=== PATIENT | female | born 1995 | race African-American/Black ===

== ENCOUNTER 2016-12-25 10:39 | Emergency (ER) | payer SELFPAY ==
[2016-12-25 10:42] VITALS: BP 121/73; PULSE 58; TEMP 98.2; BMI 20.1
[2016-12-25] MEDS ORDERED: IBUPROFEN 600 MG TABLET (FP) PO ONE ×2 (11:25→11:29)
--- NOTE | 2016-12-25 11:25 | PDOC ---
History of Present Illness - General Chief Complaint: Pain Stated Complaint: RIGHT FOOT SWOLLEN/ NUMB TOES Time Seen by Provider: 12/25/16 10:55 History Source: Patient Exam Limitations: No Limitations - History of Present Illness Initial Comments: 12/25/16 11:36 Chief complaint: Foot pain pt is a healthy 21-year-old female ate she has right foot pain for 2 days, no mechanism of injury, otherwise feels well, and no medical problems. Patient states it's painful to walk on. no Recent pedicures or specific activities GENERAL/CONSTITUTIONAL: No fever, weakness. dizziness HEAD, EYES, EARS, NOSE AND THROAT: No change in vision. No ear pain or discharge. No sore throat. CARDIOVASCULAR: No chest pain RESPIRATORY: No shortness of breath or cough GASTROINTESTINAL: No pain, nausea, vomiting, diarrhea or constipation GENITOURINARY: No dysuria MUSCULOSKELETAL: No neck or back pain, + right foot SKIN: No rash NEUROLOGIC: No headache, vertigo, loss of consciousness, or loss of sensation. GENERAL: The patient is awake, alert, and fully oriented, in no acute distress. HEAD: Normal with no signs of trauma. EYES: Pupils equal, round and reactive to light, sclera anicteric, conjunctiva clear. ENT: pharynx: no erythema, no exudate, uvula midline NECK: supple CHEST: clear, nontender, rr ABD: soft, nontender EXTREMITIES: Right foot with no gross swelling, no specific tenderness, no signs of infection or wounds. Painful range of motion, neurovascular intact, exam of the rest of the extremity is negative, other extremities, normal range of motion, no edema. NEUROLOGICAL: Normal speech, normal gait. SKIN: Warm, Dry Severity: mild Past History - Past Medical History Allergies/Adverse Reactions: Allergies Allergy/AdvReac Type Severity Reaction Status Date / Time No Known Allergies Allergy Verified 12/25/16 10:42 Home Medications: Ambulatory Orders NK [No Known Home Medication] 12/25/16 Other medical history: NONE - Psycho/Social/Smoking Cessation Hx Anxiety: No Suicidal Ideation: No Smoking History: Never smoked Have you smoked in the past 12 months: No Hx Alcohol Use: Yes (SOCIAL) Drug/Substance Use Hx: No Substance Use Type: None *Physical Exam - Vital Signs Last Vital Signs Temp Pulse Resp BP Pulse Ox 98.2 F 58 L 20 121/73 100 12/25/16 10:39 12/25/16 10:39 12/25/16 10:39 12/25/16 10:39 12/25/16 10:39 Medical Decision Making - Medical Decision Making 12/25/16 12:04 X-ray negative, no indication for further workup place patient on crutches and give her name for orthopedic follow-up if this does not resolve over the next couple of days with nonweightbearing *DC/Admit/Observation/Transfer Diagnosis at time of Disposition: Foot pain, right - Discharge Dispostion Disposition: HOME Condition at time of disposition: Stable Admit: No - Referrals Referrals: Rufus Donald MD [Staff Physician] - - Patient Instructions Additional Instructions: Elevate, use crutches Motrin 600 mg every 6 hours for pain. Call the orthopedist tomorrow
== END 2016-12-25 12:10 | disposition home or self-care (01) ==
LOC: JERFT 10:39
DX: M79.671 Pain in right foot (principal)
CPT/HCPCS: 73630-TC-RT; 99281-25

== ENCOUNTER 2017-06-26 11:15 | Emergency (ER) | payer OTHER ==
[2017-06-26 11:41] VITALS: BP 120/69; PULSE 74; TEMP 98.2; BMI 20.1
[2017-06-26] MEDS ORDERED: DEXTROSE 5%-0.45% SALINE 1,000 ML IV SCH (15:00)
[2017-06-26] MEDS ORDERED: METOCLOPRAMIDE HCL INJECTION 10 MG/2 ML VIAL IVPB ONE (15:03)
--- NOTE | 2017-06-26 15:07 | PDOC ---
History of Present Illness - General Chief Complaint: Lightheaded Stated Complaint: LIGHTHEADED (10 WKS ) Time Seen by Provider: 06/26/17 14:48 History Source: Patient - History of Present Illness Timing/Duration: other Associated Symptoms: reports: nausea/vomiting. denies: chest pain, fever/chills , headaches, shortness of breath, syncope Past History - Past Medical History Allergies/Adverse Reactions: Allergies Allergy/AdvReac Type Severity Reaction Status Date / Time No Known Allergies Allergy Verified 06/26/17 11:38 Home Medications: Ambulatory Orders Metoclopramide HCl [Reglan] 10 mg GT Q8H PRN #20 tablet 06/26/17 COPD: No - Suicide/Smoking/Psychosocial Hx Smoking History: Never smoked Have you smoked in the past 12 months: No Information on smoking cessation initiated: No Hx Alcohol Use: Yes (SOCIAL) Drug/Substance Use Hx: No Substance Use Type: None Review of Systems - Review of Systems Constitutional: No: Chills, Fever Respiratory: No: Shortness of Breath Cardiac (ROS): Yes: Lightheadedness. No: Chest Pain, Palpitations ABD/GI: Yes: Nausea, Vomiting. No: Abdominal cramping : No: Dysuria *Physical Exam - Vital Signs Last Vital Signs Temp Pulse Resp BP Pulse Ox 98.2 F 74 18 120/69 100 06/26/17 11:39 06/26/17 11:39 06/26/17 11:39 06/26/17 11:39 06/26/17 11:39 - Physical Exam General Appearance: Yes: Appropriately Dressed. No: Apparent Distress HEENT: positive: Normal Voice Neck: positive: Supple Respiratory/Chest: negative: Respiratory Distress Gastrointestinal/Abdominal: positive: Soft. negative: Tender Integumentary: positive: Dry, Warm Neurologic: positive: Fully Oriented, Alert, Normal Mood/Affect ED Treatment Course - LABORATORY CBC & Chemistry Diagram: 06/26/17 15:20 06/26/17 15:20 Medical Decision Making - Medical Decision Making 06/26/17 15:04 22 yo F, , ~10 weeks by dates, has had IUP demonstrated on US in OB 's office, on vitamins, sent in by her OB for IV hydration for n/v per pt. As per patient, has been having intermittent nausea, vomiting since she found out she was . Last time she vomited was while in the waiting room. Went to see her OB today and complained that she was dizzy at work and felt like she was going to pass out, but denies any syncope. No chest pain or shortness of breath. Denies abdominal pain, vaginal bleeding or dysuria. States she is not on any anti-emetics at home See exam Dizziness in setting of hyperemesis Stable and well bob in ED -IVF -zofran -labs -reassess 06/26/17 16:08 Labs unremarkable. Patient significantly improved with meds and requesting discharge home. Will dc with instructions to rest, maintain adequate hydration and given prescription for Reglan to take as needed. Patient to continue following up with her OB *DC/Admit/Observation/Transfer Diagnosis at time of Disposition: Hyperemesis Qualifiers: Vomiting type: unspecified Nausea presence: with nausea Qualified Code(s): R11.2 - Nausea with vomiting, unspecified - Discharge Dispostion Disposition: HOME Condition at time of disposition: Improved - Prescriptions Prescriptions: Metoclopramide HCl [Reglan] 10 mg GT Q8H PRN #20 tablet PRN Reason: Nausea And/Or Vomiting - Referrals Referrals: Yonatan James [Primary Care Provider] - - Patient Instructions Printed Discharge Instructions: DI for Hyperemesis Gravidarum Additional Instructions: Rest, maintain adequate hydration and take reglan as needed for nausea/vomiting. Please continue to follow-up with your OB - Post Discharge Activity Forms/Work/School Notes: Back to Work
[2017-06-26] MEDS ORDERED: METOCLOPRAMIDE HCL INJECTION 10 MG/2 ML VIAL ONE (15:22)
[2017-06-26 15:42] LABS: BASOPHIL 0.2 % (0-2.0); EOSINOPHIL 0.7 % (0-4.5); MCH 29.6 pg (25.7-33.7); MCHC 33.6 g/dl (32.0-36.0); MEAN CELL VOLUME 88.2 fl (80-96); NEUTROPHILS 62.5 % (42.8-82.8); PLATELET COUNT 293 K/MM3 (134-434); RDW 12.8 % (11.6-15.6)
[2017-06-26 15:54] LABS: URINE APPEARANCE CLEAR; URINE BILIRUBIN NEGATIVE (NEGATIVE); URINE BLOOD NEGATIVE (NEGATIVE); URINE COLOR YELLOW; URINE GLUCOSE (UA) 1+ (NEGATIVE); URINE KETONE NEGATIVE (NEGATIVE); URINE NITRITE NEGATIVE (NEGATIVE); URINE PROTEIN NEGATIVE (NEGATIVE)
[2017-06-26 15:55] LABS: ALBUMIN 3.8 g/dl (3.4-5.0); ANION GAP 7 (8-16); BILIRUBIN,TOTAL 0.5 mg/dL (0.2-1.0); CALCIUM 9.3 mg/dL (8.5-10.1); CO2 26 mmol/L (21-32); CREATININE 0.5 mg/dL (0.55-1.02); GLUCOSE,RANDOM 85 mg/dL (74-106); SGOT/AST 8 U/L (15-37); SGPT/ALT 13 U/L (12-78); TOT PROT 7.2 g/dl (6.4-8.2)
[2017-06-26 15:56] LABS: ALK PHOS 40 U/L (45-117)
[2017-06-26 19:02] LABS: URINE LEUK ESTERASE Negative (NEGATIVE)
== END 2017-06-26 16:18 | disposition home or self-care (01) ==
LOC: JER 11:15
PROC: 3E033GC Introduction of Other Therapeutic Substance into Peripheral Vein, Percutaneous Approach (ICD-10-PCS; principal; 2017-06-26)
DX: O26.891 Other specified pregnancy related conditions, first trimester (principal); O21.0 Mild hyperemesis gravidarum; Z3A.10 10 weeks gestation of pregnancy
CPT/HCPCS: 36415; 80053; 81003; 85025; 99282-25

== ENCOUNTER 2018-01-20 17:40 | Inpatient (IN) | payer OTHER ==
[2018-01-20 18:12] VITALS: BMI 25.8
[2018-01-20] MEDS ORDERED: TUBERCULIN PPD 5 TU/0.1ML SYRINGE (IN PATIENT USE ONLY) ID ONE (18:15)
[2018-01-20 18:56] LABS: BASO % 0.4 % (0-2.0); EOS % 0.9 % (0-4.5); HEMATOCRIT 35.3 % (32.4-45.2); HEMOGLOBIN 11.9 GM/dL (10.7-15.3); LYMPH % 23.6 % (8-40); MCH 30.3 pg (25.7-33.7); MCHC 33.7 g/dl (32.0-36.0); MEAN CELL VOLUME 89.9 fl (80-96); MEAN PLT VOLUME 9.7 fl (7.5-11.1); MONO % 9.1 % (3.8-10.2); PLATELET COUNT 176 K/MM3 (134-434); RBC 3.93 M/mm3 (3.60-5.2); RDW 14.2 % (11.6-15.6); WHITE BLOOD COUNT 6.7 K/mm3 (4.0-10.0)
[2018-01-20 19:31] LABS: INR 0.93 (0.82-1.09); PROTHROMBIN TIME (PATIENT) 10.5 SEC (9.7-13.0)
[2018-01-20 19:34] LABS: ACTIVATED PTT 27.2 SECONDS (25.2-36.5)
[2018-01-20 19:58] LABS: GLUCOSE,RANDOM 81 mg/dL (74-106)
[2018-01-20 19:59] LABS: BLOOD UREA NITROGEN 4 mg/dL (7-18); CALCIUM 8.2 mg/dL (8.5-10.1); CO2 22 mmol/L (21-32); CREATININE 0.7 mg/dL (0.55-1.02)
[2018-01-20 20:00] LABS: ANION GAP 10 (8-16); CHLORIDE 110 mmol/L (98-107); POTASSIUM 3.9 mmol/L (3.5-5.1); SODIUM 142 mmol/L (136-145)
[2018-01-20] MEDS: DEXTROSE 5%-LACTATED RINGERS 1,000 ML IV SCH (20:50)
[2018-01-20] MEDS ORDERED: DINOPROSTONE 10 MG VAGINAL SUPPOSITORY VG ONE (22:26)
[2018-01-20 23:12] LABS: URINE APPEARANCE CLEAR; URINE BILIRUBIN NEGATIVE (<2.0 mg/dL); URINE COLOR STRAW; URINE GLUCOSE (UA) NEGATIVE (NEGATIVE); URINE KETONE NEGATIVE (NEGATIVE); URINE LEUK ESTERASE NEGATIVE (NEGATIVE); URINE NITRITE NEGATIVE (NEGATIVE); URINE PROTEIN NEGATIVE (NEGATIVE); URINE UROBILINOGEN NEGATIVE mg/dL (0.2-1.0)
[2018-01-20 23:13] LABS: RETICULOCYTES 2.11 % (0.5-1.5)
[2018-01-20 23:32] LABS: URIC ACID 4.5 mg/dL (2.6-7.2)
[2018-01-21] MEDS: DEXTROSE 5%-LACTATED RINGERS 1,000 ML IV SCH ×2 (01:23→21:31)
--- NOTE | 2018-01-21 01:30 | HP ---
Past Medical History - Admission Chief Complaint: iup at 39 weeks with h/o induced hypertension. is admitted for cervidil inductin of labor History of Present Illness: h/o hypertension in diet controlled . current blood pressure is reading 119/75 patient is asymptomatic, she also has a h/o sickle cell traits fob has not been tested History Source: Patient Limitations to Obtaining History: No Limitations - Past Medical History [employer]: No: Alzheimer's, CVA, Dementia, Migraine, Multiple Sclerosis, Peripheral Neuropathy, Parkinson's, Seizure, Syncope, TIA, Vertigo, Other Cardiovascular: No: AFIB, Aneurysm, Aortic Insufficiency, Aortic Stenosis, CAD, CHF, Deep Vein Thrombosis, HTN, Hyperlipdemia, [place], Mitral Insufficiency, Mitral Stenosis, Murmur, Pulmonary Hypertension, Other Pulmonary: No: Asthma, Bronchitis, Cancer, COPD, O2 Dependent, Pneumonia, Previously Intubated, Pulmonary Embolus, Pulmonary Fibrosis, Sleep Apnea, Other Gastrointestinal: No: Ascites, Cancer, Constipation, Crohn's Disease, Diverticulitis, Diverticulosis, Esophageal Varices, Gastritis, GERD, GI Bleed, Hemorrhoids, Hiatal Hernia, Inflamatory Bowel Disease, Irritable Bowel Disease, Pancreatitis, Peptic Ulcer Disease, Ulcerative Colitis, Other Hepatobiliary: No: Cirrhosis, Cholelithiasis, Cholecystitis, Choledocholithiasis , Hepatitis A, Hepatitis B, Hepatitis C, Other Renal/: No: Renal Failure, Renal Inusuff, BPH, Cancer, Hematuria, Hemodialysis , Neurogenic Bladder, Renal Calculi, UTI, Other Reproductive: No: Ectopic , Endometriosis, Fibroids, PID, Polycystic Ovary Syndrome, Postmenopausal, Other ...: 2 ...Para: 0 ...Term: 0 ...: 0 ...Spon : 0 ...Induced : 1 ...Multiple Gestation: 0 ...LMP: 04/15/17 ... Weeks Gestation by Dates: 40 ...EDC by Dates: 01/20/18 ...EDC by Sono: 01/20/18 Heme/Onc: Yes: Sickle Cell Trait Infectious Disease: No: AIDS, C-Diff, Herpes Zoster, HIV, MRSA, STD's, Tuberculosis, VREF, Other Psych: No: Addictions, Anxiety, Bipolar, Depression, Panic, Psychosis, Schizophrenia, Other Musculoskeletal: No: Bursitis, Chronic low back pain, Hemiparesis, Hemiplegia, Osteoarthritis, Paraplegia, Other Rheumatology: No: Fibromyalgia, Gout, Lupus, Rheumatoid Arthritis, Sarcoidosis, Vasculitis, Other ENT: No: Allergic Rhinitis, Sinusitis, Other Endocrine: No: Rusk's Disease, Chrissie's Disease, Diabetes Insipidus, Diabetes Mellitus, Hyperparathyroidism, Hyperthyroidism, Hypothyroidism, Osteopenia, SIADH, Other Dermatology: No: Basal Cell, Cellulitis, Eczema, Melanoma, Psoriasis, Squamous Cell, Other - Past Surgical History Past Surgical History: Yes: Tonsillectomy Hx Myomectomy: No Hx Transabdominal Cerclage: No - Smoking History Smoking history: Never smoked Have you smoked in the past 12 months: No - Alcohol/Substance Use Hx Alcohol Use: No Home Medications - Allergies Allergies/Adverse Reactions: Allergies Allergy/AdvReac Type Severity Reaction Status Date / Time No Known Allergies Allergy Verified 01/19/18 10:30 - Home Medications Home Medications: Ambulatory Orders Ferrous Sulfate 325 mg PO DAILY MDD 1 01/01/18 Pnv No.95/Ferrous Fum/Folic AC [ Vitamin Tablet] 1 each PO DAILY Family Disease History - Family Disease History Family History: Unremarkable Review of Systems - Review of Systems Constitutional: denies: No Symptoms, Chills, Diaphoresis, Fever, Lethargy, Loss of Appetite, Malaise, Night Sweats, Unintentional Wgt. Loss, Weakness, Other Eyes: denies: No Symptoms, Blind Spots, Blurred Vision, Double Vision, Eye Pain , Floaters, Photophobia, Recent Change in Vision, Other HENT: denies: No Symptoms, Difficult Swallowing, Ear Discharge, Ear Pain, Epistaxis, Gingival Bleeding, Hearing Loss, Mouth Swelling, Nasal Congestion, Ocular Prosthesis, Throat Pain, Toothache, Ringing in Ears, Other Neck: denies: No Symptoms, Decreased ROM, Lumps, Pain on Movement, Stiffness, Swollen Glands, Tenderness, Other Cardiovascular: denies: No Symptoms, Chest Pain, Edema, Palpitations, Shortness of Breath, Other Respiratory: denies: No Symptoms, Cough, Exercise Intolerance, Hemoptysis, Orthopnea, PND, Snoring, SOB, SOB on Exertion, Wheezing, Other Genitourinary: denies: No Symptoms, Burning, Discharge, Dysuria, Flank Pain, Frequency, Hematuria, Incontinence, Lesions, Menses, Pain, Testicular Mass, Testicular Pain, Testicular Swelling, Urgency, Vaginal Bleeding, Other Breasts: denies: No Symptoms Reported, See HPI, Breast Implants, Discharge from Nipple, Lumps, Pain, Skin Changes, Other Musculoskeletal: denies: No Symptoms, Back Pain, Crepitus, Decreased ROM, Extremity Pain, Joint Pain, Joint Swelling, Muscle Pain, Muscle Cramps, Muscle Weakness, Other Integumentary: denies: No Symptoms, Blister, Bruising, Change in Color, Eczema, Erythema, Incision, Lesions, Lump, Pallor, Pruritis, Rash, Wound, Other Neurological: denies: No Symptoms, Change in LOC, Change in Speech, Confusion, Dizziness, Headache, Incoordination, Numbness, Parasthesia, Pre-Existing Deficit , Seizure, Syncope, Tremors, Unsteady Gait, Weakness, Other Endocrine: denies: No Symptoms, Excessive Sweating, Flushing, Increased Hunger, Increased Thirst, Intolerance to Cold, Intolerance to Heat, Unexplained Weight Gain, Unexplained Weight Loss, Other Hematology/Lymphatic: denies: No Symptoms, Easily Bruised, Excessive Bleeding, Swollen Glands, Other Psychiatric: denies: No Symptoms, Altered Sleep Pattern, Anxiety, Depression, Hallucinations, Panic, Paranoia, Suicidal, Other Physical Exam - Maternity Vital Signs: Vital Signs Temperature 98.0 F 01/21/18 00:00 Pulse Rate 73 01/21/18 00:00 Respiratory Rate 20 01/21/18 00:00 Blood Pressure 133/82 01/21/18 00:00 O2 Sat by Pulse Oximetry (%) Constitutional: Yes: Well Nourished, No Distress, Calm Eyes: Yes: WNL, Conjunctiva Clear HENT: Yes: WNL, Atraumatic, Normocephalic Neck: Yes: WNL, Supple Cardiovascular: Yes: WNL, Regular Rate and Rhythm Lungs: Clear to auscultation Breast(s): Yes: WNL - Abdominal Exam/OB Number of Fetuses: Single Presentation: Vertex Contractions: Yes Regularity: Regular Intensity: Mild/Mod Monitor Mode: External Heart Rate (range): 150bpm Heart Rate Location: [facility] Category: I Accelerations: Uniform Decelerations: None - Vaginal Exam/OB Vaginal Bleediing: No Speculum Exam: No Dilatation (cm): ft Effacement (%): 50% Amniotic Membrane Status: Intact Presentation: Vertex/Position Station: -3 - Physical Exam Musculoskeletal: Yes: WNL Extremities: Yes: WNL Edema: No Integumentary: Yes: WNL Deep Tendon Reflex Grade: Normal +2 ...Motor Strength: WNL Psychiatric: Yes: WNL, Alert, Oriented - Labs Lab Results: CBC, BMP 01/20/18 22:50 01/20/18 18:16 Assessment/Plan iup at 39 weeks h/o induced hypertension current blood pressure is within normal limits plan begin induction with cevidil continue pain management as needed by the patient continue close monitoring of the blood pressure.
--- NOTE | 2018-01-21 10:37 | PN ---
Ante-Partal Exam - Subjective Subjective: Pt feeling crampy, no other complaints. Vital Signs: Vital Signs Temperature 98.6 F 01/21/18 08:00 Pulse Rate 80 01/21/18 09:00 Respiratory Rate 20 01/21/18 09:00 Blood Pressure 111/64 01/21/18 09:00 O2 Sat by Pulse Oximetry (%) Bleeding: No Headache: No Visual changes: No Right upper quadrant pain: No Pain (scale 1-10): 1 - Contractions Contractions: Yes Regularity: Regular Intensity: Mild - Exam during Labor Heart Rate: 150 Variability: Moderate Category: I Monitor Accelerations: Present Monitor Decelerations: None Exam: Vaginal Dilatation (cm): 0.0 Effacement (%): 0 Amniotic Membrane Status: Intact Presentation: Vertex Station: -2 - Assessment/Plan Assessment/Plan: Pt with no cervical change. Cervidil removed and second one placed at this time. Re evaluate this evening at 10:15 pm.
[2018-01-21] MEDS ORDERED: ELECTROLYTE-148 SOLN 1,000 ML IV SCH (11:30)
[2018-01-21] MEDS ORDERED: PROMETHAZINE HCL 25 MG/1 ML VIAL IVPB ONE (11:30)
[2018-01-21] MEDS ORDERED: BUTORPHANOL TARTRATE 1 MG/ML VIAL IVPB ONE (11:30)
[2018-01-21] MEDS ORDERED: PROMETHAZINE HCL 25 MG/1 ML VIAL ONE (15:43)
[2018-01-21] MEDS ORDERED: BUTORPHANOL TARTRATE 1 MG/ML VIAL ONE ×2 (15:43)
[2018-01-21] MEDS ORDERED: OXYTOCIN 30 UNITS in 0.9% NS 30 UNIT/500 ML INFUS.BAG IVPB SCH (19:00)
--- NOTE | 2018-01-21 19:10 | PN ---
Ante-Partal Exam - Subjective Subjective: Pt sleeping s/p stadol/phenergan. SROM this afternoon, cervidil fell out. Contractions have now spaced. Vital Signs: Vital Signs Temperature 98.3 F 01/21/18 18:00 Pulse Rate 80 01/21/18 18:00 Respiratory Rate 20 01/21/18 18:00 Blood Pressure 132/76 01/21/18 18:00 O2 Sat by Pulse Oximetry (%) Bleeding: Yes - Contractions Contractions: Yes Regularity: Irregular Intensity: Mild Monitor Mode: External - Exam during Labor Heart Rate: 155 Variability: Moderate Category: I Monitor Accelerations: Absent Monitor Decelerations: None Exam: Vaginal Dilatation (cm): 1 Effacement (%): 70 Amniotic Membrane Status: Ruptured Amniotic Fluid: Clear Presentation: Vertex Station: -2 - Assessment/Plan Assessment/Plan: Pt with IOL for gestational HTN, now with SROM, continue induction with pitocin. analgesia prn GBS negative
[2018-01-21] MEDS ORDERED: OXYTOCIN 30 UNITS in 0.9% NS 30 UNIT/500 ML INFUS.BAG IVPB ONE (19:15)
[2018-01-21] MEDS ORDERED: BUTORPHANOL TARTRATE 1 MG/ML VIAL IVPB PRN (20:24)
[2018-01-21] MEDS ORDERED: PROMETHAZINE HCL 25 MG/1 ML VIAL IVPB PRN (21:54)
[2018-01-21] MEDS ORDERED: ACETAMINOPHEN 325 MG TABLET (FP) ONE (22:39)
[2018-01-21] MEDS ORDERED: ACETAMINOPHEN 325 MG TABLET (FP) PO ONE (22:45)
[2018-01-22] MEDS ORDERED: PROMETHAZINE HCL 25 MG/1 ML VIAL ONE (00:20)
[2018-01-22] MEDS ORDERED: BUTORPHANOL TARTRATE 1 MG/ML VIAL ONE ×2 (00:20)
[2018-01-22] MEDS: DEXTROSE 5%-LACTATED RINGERS 1,000 ML IV SCH (00:30)
[2018-01-22] MEDS ORDERED: AMPICILLIN SODIUM 2 GM VIAL ONE (06:05)
[2018-01-22] MEDS ORDERED: AMPICILLIN - 2 GM in SODIUM CHLORIDE 100 ML IVPB ONE (06:45)
[2018-01-22] MEDS ORDERED: ELECTROLYTE-148 SOLN 500 ML IV ONE (10:00)
[2018-01-22] MEDS ORDERED: CITRIC ACID/SODIUM CITRATE 30 ML UNIT-DOSE CUP PO ONE (10:00)
[2018-01-22] MEDS ORDERED: morphine SULFATE/Preservative Free 0.5 MG/ML (1cc Syringe) ONE (10:11)
[2018-01-22] MEDS ORDERED: ceFAZolin SODIUM 1 GM VIAL ONE (10:12)
[2018-01-22] MEDS ORDERED: PHENYLEPHRINE HCL 10 MG/1 ML SINGLE DOSE VIAL ONE (10:13)
--- NOTE | 2018-01-22 10:13 | PN ---
Ante-Partal Exam - Subjective Subjective: Pt had pitocin overnight, however was discontinued due to variable decelerations. Now FHR tachycardic. Vital Signs: Vital Signs Temperature 98.6 F 01/22/18 08:00 Pulse Rate 84 01/22/18 09:00 Respiratory Rate 18 01/22/18 09:00 Blood Pressure 132/81 01/22/18 09:00 O2 Sat by Pulse Oximetry (%) Bleeding: No Headache: No Visual changes: No Right upper quadrant pain: No - Contractions Contractions: Yes Monitor Mode: External - Exam during Labor Heart Rate: 165 Variability: Moderate Category: II Monitor Accelerations: Present Monitor Decelerations: Variable (non recurrent) Exam: Vaginal Dilatation (cm): 3 Presentation: Vertex Remarks: exam per nursing staff - Assessment/Plan Assessment/Plan: IOL for gestational HTN no progress and intolerance to pitocin plan for delivery R/B/A discussed in detail, questions answered, consents signed
[2018-01-22] MEDS ORDERED: METHYLERGONOVINE MALEATE 0.2 MG/1 ML AMP IM PRN (10:14)
[2018-01-22] MEDS ORDERED: IBUPROFEN 600 MG TABLET (FP) PO PRN (10:14)
[2018-01-22] MEDS ORDERED: oxyCODONE HCL 5 MG TABLET PO PRN (10:14)
[2018-01-22] MEDS ORDERED: IBUPROFEN 800 MG/8 ML IJ IVPB PRN (10:14)
[2018-01-22] MEDS ORDERED: OXYTOCIN 20 UNITS in 0.9% NS 20 UNIT/1,000 ML INFUS.BAG IV SCH (10:15)
[2018-01-22] MEDS ORDERED: BUPIVACAINE 0.75% IN DEXTROSE/PF 2ML AMPULE NR ONE (10:17)
[2018-01-22] MEDS ORDERED: ELECTROLYTE-148 SOLN 1,000 ML IV SCH (10:30)
[2018-01-22] MEDS ORDERED: OXYTOCIN 10 UNITS/ML VIAL ONE ×2 (10:33→10:57)
--- NOTE | 2018-01-22 11:10 | OP ---
Operative Note - Note: Operative Date: 01/22/18 Pre-Operative Diagnosis: SIUP at 40 weeks, failed induction of labor for gestational HTN, intolerance to pitocin Operation: primary low transverse delivery Findings: normal b/l tubes and ovaries Surgeon: Alexandrea Kumar [employer] Controller Center: Andrew Castanon Anesthesiologist/PUTTY MIXER: Chato Veliz Anesthesia: Spinal Estimated Blood Loss (mls): 600 Operative Report Dictated: Yes
[2018-01-22] MEDS ORDERED: ONDANSETRON 4 MG/2 ML VIAL IVPUSH PRN (11:20)
[2018-01-22 11:46] LABS: ARTERIAL BLD GAS O2 SATURATION 8.5 % (90-98.9); ARTERIAL BLOOD GAS BASE EXCESS -2.8 meq/l (-2-2); ARTERIAL BLOOD GAS PCO2 64.9 mmHg (35-45); ARTERIAL BLOOD GAS pH 7.23 (7.35-7.45)
[2018-01-22 11:52] LABS: VENOUS PH 7.34 (7.32-7.42); VENOUS PO2 20.5 mmHg (28-48)
[2018-01-22] MEDS ORDERED: OXYTOCIN 20 UNITS in 0.9% NS 20 UNIT/1,000 ML INFUS.BAG IV ONE (12:20)
[2018-01-22] MEDS: PRENATAL VITAMINS W/ FOLIC ACID TABLET (FP) PO SCH ×2 (16:05→16:33)
[2018-01-22] MEDS: FERROUS SO4 325 MG TABLET (FP) PO SCH ×2 (16:05→16:32)
--- NOTE | 2018-01-22 19:12 | OP ---
DATE OF OPERATION: 01/22/2018 PREOPERATIVE DIAGNOSIS: Single intrauterine at 40 weeks, gestational hypertension, induction of labor secondary Pitocin. PROCEDURE: Primary low transverse delivery. SURGEON: Alexandrea Kumar M.D. GENETICS NURSE: Zelda Arevalo ANESTHESIA: Spinal. ANESTHESIOLOGIST: Chato Veliz M.D. ESTIMATED BLOOD LOSS: 600 mL. COMPLICATIONS: None. SPECIMENS REMOVED: The placenta. FINDINGS: Normal bilateral tubes and ovaries. COUNTS: Sponge, needle, and instrument count correct. DISPOSITION: Stable to PACU. BRIEF HISTORY AND PROCEDURE: Patient is a 22-year-old G2, P0 female who had was admitted to labor and delivery on January 20, 2018, for induction of labor secondary to gestational hypertension. Patient received Cervidil induction overnight Monday and throughout the day on Monday and had made cervical change to 1 to 2 cm, had ruptured her membranes spontaneously. The patient was started on Pitocin overnight January 21, 2018, and with the Pitocin the heart rate began having variable decelerations. Secondary to this, the Pitocin was turned off and on throughout the night, and in the morning on January 22, 2018, the heart rate started to become tachycardic. At this point, the patient was given her options. She elected to undergo a primary section delivery. The procedure was discussed in detail, risks, benefits, and alternatives were discussed. Risks including but not limited to bleeding, infection, and damage to surrounding tissue were discussed, the questions from the patient and family were answered in detail, and consents were signed. The patient was then taken back to the operating room where she was given spinal anesthesia by Dr. Veliz without difficulty. The patient was placed in the dorsal supine position, prepped and draped in the usual sterile fashion. Then a hard timeout was performed. A Pfannenstiel skin incision was created in the skin with a scalpel and carried to the underlying layer of rectus fascia with Bovie. The fascia was incised on either side of the midline and the fascial incision was carried in the superolateral direction sharply. This fascia tented upwards and dissected off the underlying layer of rectus muscle sharply with the Bovie. The musculature was identified and laterally. The peritoneum was entered bluntly to allow for adequate room for delivery, and the bladder blade was inserted. A transverse incision in the lower uterine segment was completed with the knife and the incision was carried in the superolateral direction bluntly. The infant was then delivered from the ROT position; after delivery of the head a nuchal cord x3 was noted, anterior and posterior shoulders delivered with ease along with the remainder of the infant. The cord was clamped twice and cut in between. The infant was taken over to the warmer to be assessed by the neonatology staff who were present for the entire delivery. The placenta was delivered intact with a 3-vessel cord, this was manually extracted. The uterus was then exteriorized from the abdomen and subsequently cleared of all amniotic membrane and debris with a dry lap sponge. The hysterotomy was then reapproximated in a double layer of closure using 1 Vicryl running, locked fashion, and the second layer using 0 Biosyn in a running locked fashion. Excellent hemostasis was achieved. The posterior cul-de-sac was suctioned. The uterus was placed back in the abdomen. Bilateral gutters were inspected and cleared of all blood clot and debris. Bilateral tubes and ovaries were noted to be normal. Hysterotomy was again noted to be hemostatic, and at this point the peritoneum was reapproximated using 2-0 chromic in a running fashion. The musculature was reapproximated in a single interrupted suture. The fascia was reapproximated using 1 Vicryl in a running fashion. The subcutaneous tissue was irrigated and reapproximated in a running fashion using Vicryl suture. The skin was reapproximated in a subcuticular fashion using 3-0 Vicryl. Steri-Strips were then applied. The patient tolerated the procedure well, to recovery in stable condition in the PACU at the time of this dictation. Sponge, needle, instrument count was reported to be correct. ALEXANDREA KUMAR DO /[id number]
[2018-01-23 08:24] LABS: BASO % 0.3 % (0-2.0); EOS % 0.4 % (0-4.5); HEMATOCRIT 33.7 % (32.4-45.2); HEMOGLOBIN 11.3 GM/dL (10.7-15.3); LYMPH % 17.1 % (8-40); MCH 30.4 pg (25.7-33.7); MCHC 33.6 g/dl (32.0-36.0); MEAN CELL VOLUME 90.5 fl (80-96); MEAN PLT VOLUME 9.2 fl (7.5-11.1); MONO % 7.9 % (3.8-10.2); NEUT % 74.3 % (42.8-82.8); PLATELET COUNT 144 K/MM3 (134-434); RBC 3.72 M/mm3 (3.60-5.2); RDW 13.9 % (11.6-15.6)
[2018-01-23] MEDS: FERROUS SO4 325 MG TABLET (FP) PO SCH (09:27)
[2018-01-23] MEDS: PRENATAL VITAMINS W/ FOLIC ACID TABLET (FP) PO SCH (09:28)
[2018-01-23] MEDS ORDERED: DIPHTH,PERTUSS(ACELL),TET 0.5 ML DISP.SYRIN IM ONE (10:00)
[2018-01-23] MEDS ORDERED: BISACODYL 10 MG SUPP.RECT RC PRN (10:14)
--- NOTE | 2018-01-23 10:37 | PN ---
Post Progress Note - Subjective Subjective: Pt seen/evaluated and doing well. Pain controlled with medications. Tolerating clears, ambulating, voiding and passing flatus. VB Minimal per nursing staff. Denies ORELLANA/RUQ pain or visual changes. Type of Delivery: Primary C/S Vital Signs: Vital Signs Temperature 97.9 F 01/23/18 09:23 Pulse Rate 74 01/23/18 09:23 Respiratory Rate 20 01/23/18 09:23 Blood Pressure 123/86 01/23/18 09:23 O2 Sat by Pulse Oximetry (%) 99 01/22/18 12:00 Breast Exam: Yes: Soft Uterus: Yes: Fundus Firm Incision: Yes: Dressing dry and intact Abdomen/GI: Yes: Abdomen soft, Passing flatus, Tolerating PO. No: Tender Lochia, amount: Small Extremities: Yes: Calves non-tender. No: Edema Perineum: Yes: Intact Activity: Ambulating - Labs Labs: CBC WBC 11.0 K/mm3 (4.0-10.0) H D 01/23/18 08:00 RBC 3.72 M/mm3 (3.60-5.2) 01/23/18 08:00 Hgb 11.3 GM/dL (10.7-15.3) 01/23/18 08:00 Hct 33.7 % (32.4-45.2) 01/23/18 08:00 MCV 90.5 fl (80-96) 01/23/18 08:00 MCH 30.4 pg (25.7-33.7) 01/23/18 08:00 MCHC 33.6 g/dl (32.0-36.0) 01/23/18 08:00 RDW 13.9 % (11.6-15.6) 01/23/18 08:00 Plt Count 144 K/MM3 (134-434) 01/23/18 08:00 MPV 9.2 fl (7.5-11.1) 01/23/18 08:00 Absolute Neuts (auto) 8.2 # 01/23/18 08:00 Neutrophils % 74.3 % (42.8-82.8) 01/23/18 08:00 Lymphocytes % 17.1 % (8-40) D 01/23/18 08:00 Monocytes % 7.9 % (3.8-10.2) 01/23/18 08:00 Eosinophils % 0.4 % (0-4.5) 01/23/18 08:00 Basophils % 0.3 % (0-2.0) 01/23/18 08:00 Nucleated RBC % 0 % (0-0) 01/23/18 08:00 Retic Count 2.11 % (0.5-1.5) H 01/20/18 22:50 Haptoglobin 87 mg/dL (34-200) 01/20/18 22:50 Problem List - Problems (1) delivery delivered Code(s): O82 - ENCOUNTER FOR DELIVERY WITHOUT INDICATION (2) Gestational hypertension Code(s): O13.9 - GESTATIONAL HTN W/O SIGNIFICANT PROTEINURIA, UNSP TRIMESTER Assessment/Plan 22 y/o POD#1 s/p primary delivery AFVSS Hgb 11.3 encourage ambulation regular diet PO pain meds routine care
--- NOTE | 2018-01-23 12:04 | PN ---
Progress Note (short form) - Note Progress Note: Anesthesia postop note 22 y/o F s/p spinal anesthesia/duramorph for section POD#1, vss, aaox3, ambulating, pain fairly well controlled. No anesthesia complications.
[2018-01-23] MEDS: oxyCODONE HCL 5 MG TABLET PO PRN ×2 (13:34→22:40)
--- NOTE | 2018-01-23 20:22 | PN ---
Ante-Partal Exam - Subjective Vital Signs: Vital Signs Temperature 97.9 F 01/23/18 09:23 Pulse Rate 74 01/23/18 09:23 Respiratory Rate 20 01/23/18 11:00 Blood Pressure 123/86 01/23/18 09:23 O2 Sat by Pulse Oximetry (%) 99 01/22/18 12:00
[2018-01-23] MEDS: SIMETHICONE 80 MG TAB.CHEW (FP) PO PRN (22:40)
[2018-01-24] MEDS: SIMETHICONE 80 MG TAB.CHEW (FP) PO PRN ×2 (08:29→18:16)
[2018-01-24] MEDS: oxyCODONE HCL 5 MG TABLET PO PRN ×2 (08:29→18:16)
[2018-01-24] MEDS: PRENATAL VITAMINS W/ FOLIC ACID TABLET (FP) PO SCH (09:57)
[2018-01-24] MEDS: FERROUS SO4 325 MG TABLET (FP) PO SCH (09:57)
--- NOTE | 2018-01-24 13:06 | PN ---
Post Progress Note - Subjective Subjective: Pt seen/evaluated and doing well. No complaints. BP in mildly elevated range. Pt asymptomatic (denies ORELLANA/RUQ pain or change in vision). No CP/SOB. VB minimal. Voiding and passing flatus, tolerating diet. Type of Delivery: Primary C/S Vital Signs: Vital Signs Temperature 100.1 F H 01/23/18 21:44 Pulse Rate 95 H 01/23/18 21:44 Respiratory Rate 20 01/23/18 21:44 Blood Pressure 134/78 01/23/18 21:44 O2 Sat by Pulse Oximetry (%) 99 01/22/18 12:00 Breast Exam: Yes: Soft Uterus: Yes: Fundus Firm Incision: Yes: Sutures intact Abdomen/GI: Yes: Abdomen soft, Passing flatus, Tolerating PO. No: Abdominal Distention, Tender Lochia: Yes: Rubra Lochia, amount: Small Extremities: Yes: Calves non-tender. No: Edema Perineum: Yes: Intact Activity: Ambulating - Labs Labs: CBC WBC 11.0 K/mm3 (4.0-10.0) H D 01/23/18 08:00 RBC 3.72 M/mm3 (3.60-5.2) 01/23/18 08:00 Hgb 11.3 GM/dL (10.7-15.3) 01/23/18 08:00 Hct 33.7 % (32.4-45.2) 01/23/18 08:00 MCV 90.5 fl (80-96) 01/23/18 08:00 MCH 30.4 pg (25.7-33.7) 01/23/18 08:00 MCHC 33.6 g/dl (32.0-36.0) 01/23/18 08:00 RDW 13.9 % (11.6-15.6) 01/23/18 08:00 Plt Count 144 K/MM3 (134-434) 01/23/18 08:00 MPV 9.2 fl (7.5-11.1) 01/23/18 08:00 Absolute Neuts (auto) 8.2 # 01/23/18 08:00 Neutrophils % 74.3 % (42.8-82.8) 01/23/18 08:00 Lymphocytes % 17.1 % (8-40) D 01/23/18 08:00 Monocytes % 7.9 % (3.8-10.2) 01/23/18 08:00 Eosinophils % 0.4 % (0-4.5) 01/23/18 08:00 Basophils % 0.3 % (0-2.0) 01/23/18 08:00 Nucleated RBC % 0 % (0-0) 01/23/18 08:00 Retic Count 2.11 % (0.5-1.5) H 01/20/18 22:50 Haptoglobin 87 mg/dL (34-200) 01/20/18 22:50 Problem List - Problems (1) delivery delivered Code(s): O82 - ENCOUNTER FOR DELIVERY WITHOUT INDICATION (2) Gestational hypertension Code(s): O13.9 - GESTATIONAL HTN W/O SIGNIFICANT PROTEINURIA, UNSP TRIMESTER Assessment/Plan 22 y/o POD#2 s/p primary delivery AFVSS Hgb 11.3 encourage ambulation regular diet PO pain meds monitor BP if persistently > 150/90 will have renal consult, otherwise will monitor as outpatient in office routine care
--- NOTE | 2018-01-25 08:44 | DS ---
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 After 48 hours at attempt at labor induction, the patient was not making progress and she underwent an uncomplicated primary delivery on . The patient's post recovery was complicated by hypertension for which renal was consulted. On post op day 5 the patient was stabilized on oral medications and discharged home in stable condition with instructions to follow up [facility] OBGYn in 1 week and Nephrology in 1 week. Condition: Good - Instructions Diet, Activity, Other Instructions: Physical activity Resume your normal everyday activity as tolerated no heavy lifting or exercise until seen by your surgeon. You may walk unlimited rosmery of and climb stairs. You may resume driving the car when you feel safe and comfortable behind the wheel. No sexual activity as instructed. Wound care If you have a bandage, leave it on, and keep dry for 48-72 hours. After that time discard the outer bandage. If they are tapes on the skin under the out of bandage leave them in place. They will peel off in the next 7 to 10 days. Do Not Peel them off. You may shower the day after surgery. If there are tapes present on the skin, you may shower over them. Diet There are no dietary restrictions. Eat healthy, high-fiber foods. Drink 6 to 8 glasses of liquid each day. This will assist in keeping your bowels are regular. Pain management You may take Tylenol or acetaminophen or Ibuprofen (for example, Motrin, Advil etc.) from my pain prescription medication is ordered should be taken as prescribed for moderate to severe pain. Call MD for any of the following: Severe pain not relieved by medication Fever of 101 or higher Excessive bleeding or drainage on dressing Inability to urinate follow up with pmd in 1 week. call for appointment. follow up with dr gordillo in 1 week. call for appointment. Referrals: Alexandrea Kumar DO [Staff Physician] - 1 Week Spencer Gordillo MD [Staff Physician] - 1 Week Disposition: HOME - Home Medications Comprehensive Discharge Medication List: Ambulatory Orders Ferrous Sulfate 325 mg PO DAILY MDD 1 01/01/18 Pnv No.95/Ferrous Fum/Folic AC [ Vitamin Tablet] 1 each PO DAILY Ibuprofen [Motrin -] 600 mg PO QID PRN #28 tablet 01/25/18 Procardia XL 30mg - 1 tablet by mouth daily Percocet 5/325 gm - 1 tablet by mouth every 4-6 hours as needed for pain
[2018-01-25 08:47] LABS: BASO % 0.4 % (0-2.0); EOS % 1.8 % (0-4.5); HEMATOCRIT 32.5 % (32.4-45.2); LYMPH % 20.6 % (8-40); MCH 30.3 pg (25.7-33.7); MCHC 33.9 g/dl (32.0-36.0); MEAN CELL VOLUME 89.4 fl (80-96); MEAN PLT VOLUME 8.5 fl (7.5-11.1); MONO % 8.1 % (3.8-10.2); NEUT % 69.1 % (42.8-82.8); PLATELET COUNT 193 K/MM3 (134-434); RBC 3.64 M/mm3 (3.60-5.2); RDW 13.9 % (11.6-15.6); WHITE BLOOD COUNT 6.2 K/mm3 (4.0-10.0)
[2018-01-25] MEDS: oxyCODONE HCL 5 MG TABLET PO PRN ×2 (09:01→21:45)
[2018-01-25] MEDS: FERROUS SO4 325 MG TABLET (FP) PO SCH (09:02)
[2018-01-25] MEDS: SIMETHICONE 80 MG TAB.CHEW (FP) PO PRN ×2 (09:02→21:45)
[2018-01-25] MEDS: PRENATAL VITAMINS W/ FOLIC ACID TABLET (FP) PO SCH (09:02)
--- NOTE | 2018-01-25 10:09 | PN ---
Post Progress Note - Subjective Subjective: BP elevated this a.m. Asymtpomatic. Otherwise feeling well. Tolerating diet, ambulating, voiding, passing flatus. VB minimal. Type of Delivery: Primary C/S Vital Signs: Vital Signs Temperature 98.2 F 01/25/18 09:35 Pulse Rate 77 01/25/18 09:35 Respiratory Rate 20 01/25/18 09:35 Blood Pressure 144/95 01/25/18 09:35 O2 Sat by Pulse Oximetry (%) 99 01/22/18 12:00 Uterus: Yes: Fundus Firm, Fundus below umbilicus Incision: Yes: Sutures intact Abdomen/GI: Yes: Abdomen soft, Tolerating PO Lochia: Yes: Rubra Lochia, amount: Small Extremities: Yes: Calves non-tender Perineum: Yes: Intact - Labs Labs: CBC WBC 6.2 K/mm3 (4.0-10.0) D 01/25/18 08:00 RBC 3.64 M/mm3 (3.60-5.2) 01/25/18 08:00 Hgb 11.0 GM/dL (10.7-15.3) 01/25/18 08:00 Hct 32.5 % (32.4-45.2) 01/25/18 08:00 MCV 89.4 fl (80-96) 01/25/18 08:00 MCH 30.3 pg (25.7-33.7) 01/25/18 08:00 MCHC 33.9 g/dl (32.0-36.0) 01/25/18 08:00 RDW 13.9 % (11.6-15.6) 01/25/18 08:00 Plt Count 193 K/MM3 (134-434) D 01/25/18 08:00 MPV 8.5 fl (7.5-11.1) 01/25/18 08:00 Absolute Neuts (auto) 4.3 # 01/25/18 08:00 Neutrophils % 69.1 % (42.8-82.8) 01/25/18 08:00 Lymphocytes % 20.6 % (8-40) D 01/25/18 08:00 Monocytes % 8.1 % (3.8-10.2) 01/25/18 08:00 Eosinophils % 1.8 % (0-4.5) D 01/25/18 08:00 Basophils % 0.4 % (0-2.0) 01/25/18 08:00 Nucleated RBC % 0 % (0-0) 01/25/18 08:00 Retic Count 2.11 % (0.5-1.5) H 01/20/18 22:50 Haptoglobin 87 mg/dL (34-200) 01/20/18 22:50 Problem List - Problems (1) delivery delivered Code(s): O82 - ENCOUNTER FOR DELIVERY WITHOUT INDICATION (2) Gestational hypertension Code(s): O13.9 - GESTATIONAL HTN W/O SIGNIFICANT PROTEINURIA, UNSP TRIMESTER Assessment/Plan regular diet PO pain meds renal consult hold discharge
--- NOTE | 2018-01-25 11:49 | PATH ---
Surgical Pathology Report Patient Name: ADDISON COURTNEY Med. Rec. #: [id number] /Age/Gender: 1995 (Age: 22) / F Account: [id number] Location: [facility] OBS/DISTANCE EDUCATION DIRECTOR Taken: 01/22/2018 Received: 01/23/2018 Reported: 01/25/2018 Physicians: Alexandrea Kumar M.D. Specimen(s) Received PLACENTA Clinical History [id number] , failed induction, failure to progress IAB x1 2015 Final Diagnosis PLACENTA: THIRD TRIMESTER PLACENTA WITH FOCAL INTRAPARENCHYMAL HEMORRHAGE (0.7CM IN GREATEST DIMENSION). TRIVASCULAR CORD. MEMBRANES WITH NO DIAGNOSTIC ABNORMALITIES. __ Electronically Signed Geno Vo M.D. Gross Description The specimen is received fresh labeled placenta and is a 472 gram, 22.0 x 14.0 x 2.2 cm. placenta with attached membranes and umbilical cord. The attached membranes are shannon, translucent with focal opacities and insert marginally. The umbilical cord measures 28 cm. in length and averages 1.0 cm. in diameter. The cord inserts eccentrically, 4 cm. to the nearest margin. No true knots or strictures are identified. Cut surface of the umbilical cord reveals 3 vessels. The surface is peace-blue with minimal fibrin deposition and appropriate caliber vessels. The maternal surface is red-brown with focal defects. Sectioning reveals a 0.7 cm greatest dimension hemorrhagic area. The remaining placental parenchyma is red-brown and spongy. Industrial Controls Technician sections are submitted in 4 cassettes as follows: 1-membrane roll and umbilical cord; 2-lesion; 3-9-gsum-thickness sections of placenta. 01/24/2018 [facility]01/24/2018
--- NOTE | 2018-01-25 13:42 | CONSULT ---
Consult Consult Specialty:: Nephrology ( Drs. Stern/ Erik) Reason for Consultation:: Post Hypertension - History of Present Illness Chief Complaint: Hypertension in a Primigravida post History of Present Illness: the patient has LSCS 3 days ago. BP generally runs high normal, but has become accelerated in the past 24 hours. The patient still in pain, and has been receiving Percocet. No urinary complaints. No chest pain. No SOB. 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: No: Alzheimer's, CVA, Dementia, Migraine, Multiple Sclerosis, Peripheral Neuropathy, Parkinson's, Seizure, Syncope, TIA, Vertigo, Other Cardio/Vascular: No: AFIB, Aneurysm, Aortic Insufficiency, Aortic Stenosis, CAD , CHF, Deep Vein Thrombosis, HTN, Hyperlipdemia, AL, Mitral Insufficiency, Mitral Stenosis, Murmur, Pulmonary Hypertension, Other Pulmonary: No: Asthma, Bronchitis, Cancer, COPD, O2 Dependent, Pneumonia, Previously Intubated, Pulmonary Embolus, Pulmonary Fibrosis, Sleep Apnea, Other Gastrointestinal: No: Ascites, Cancer, Constipation, Crohn's Disease, Diverticulitis, Diverticulosis, Esophageal Varices, Gastritis, GERD, GI Bleed, Hemorrhoids, Hiatal Hernia, Inflamatory Bowel Disease, Irritable Bowel Disease, Pancreatitis, Peptic Ulcer Disease, Ulcerative Colitis, Other Hepatobiliary: No: Cirrhosis, Cholelithiasis, Cholecystitis, Choledocholithiasis , Hepatitis A, Hepatitis B, Hepatitis C, Other Renal/: No: Renal Failure, Renal Inusuff, BPH, Cancer, Hematuria, Hemodialysis , Neurogenic Bladder, Renal Calculi, UTI, Other Infectious Disease: No: AIDS, C-Diff, Herpes Zoster, HIV, MRSA, STD's, Tuberculosis, VREF, Other Psych: No: Addictions, Anxiety, Bipolar, Depression, Panic, Psychosis, Schizophrenia, Other Musculoskeletal: No: Bursitis, Chronic low back pain, Hemiparesis, Hemiplegia, Osteoarthritis, Paraplegia, Other Rheumatology: No: Fibromyalgia, Gout, Lupus, Rheumatoid Arthritis, Sarcoidosis, Vasculitis, Other ENT: No: Allergic Rhinitis, Sinusitis, Other Endocrine: No: [place]'s Disease, Chrissie's Disease, Diabetes Insipidus, Diabetes Mellitus, Hyperparathyroidism, Hyperthyroidism, Hypothyroidism, Osteopenia, SIADH, Other Dermatology: No: Basal Cell, Cellulitis, Eczema, Melanoma, Psoriasis, Squamous Cell, Other - Past Surgical History Past Surgical History: Yes: Tonsillectomy - Alcohol/Substance Use Hx Alcohol Use: No - Smoking History Smoking history: Never smoked Have you smoked in the past 12 months: No Home Medications - Allergies Allergies/Adverse Reactions: Allergies Allergy/AdvReac Type Severity Reaction Status Date / Time No Known Allergies Allergy Verified 01/19/18 10:30 - Home Medications Home Medications: Ambulatory Orders Ferrous Sulfate 325 mg PO DAILY MDD 1 01/01/18 Pnv No.95/Ferrous Fum/Folic AC [ Vitamin Tablet] 1 each PO DAILY Oxycodone HCl/Acetaminophen [Percocet 5-325 mg Tablet -] 1 tab PO Q4H #20 tablet MDD 6 01/25/18 Family Disease History - Family Disease History Family History: Denies Review of Systems - Review of Systems Constitutional: reports: No Symptoms. denies: Loss of Appetite, Night Sweats Eyes: denies: Blind Spots, Blurred Vision, Double Vision, Eye Pain HENT: reports: No Symptoms Neck: reports: No Symptoms Cardiovascular: denies: Chest Pain, Palpitations, Shortness of Breath Respiratory: denies: Cough, Hemoptysis, SOB Genitourinary: reports: No Symptoms Neurological: reports: No Symptoms Endocrine: reports: No Symptoms Physical Exam Vital Signs: Vital Signs Temperature 98.2 F 01/25/18 09:35 Pulse Rate 77 01/25/18 09:35 Respiratory Rate 20 01/25/18 09:35 Blood Pressure 144/95 01/25/18 09:35 O2 Sat by Pulse Oximetry (%) 99 01/22/18 12:00 Constitutional: Yes: No Distress, Calm Eyes: Yes: Conjunctiva Clear HENT: Yes: Normocephalic Cardiovascular: Yes: Regular Rate and Rhythm, S1, S2 Respiratory: Yes: CTA Bilaterally, Diminished Gastrointestinal: Yes: Normal Bowel Sounds, Soft Renal/: No: Bladder Distention, CVA Tenderness - Left, CVA Tenderness - Right Edema: Yes Edema: LLE: Trace, RLE: Trace Neurological: Yes: Alert, Oriented Labs: CBC, BMP 01/25/18 08:00 01/20/18 18:16 Problem List - Problems (1) hypertension Code(s): O16.5 - UNSPECIFIED MATERNAL HYPERTENSION, COMP THE PUERPERIUM (2) delivery delivered Code(s): O82 - ENCOUNTER FOR DELIVERY WITHOUT INDICATION (3) Gestational hypertension Code(s): O13.9 - GESTATIONAL HTN W/O SIGNIFICANT PROTEINURIA, UNSP TRIMESTER Assessment/Plan IMP: 22 y/o female has Post HTN. No evidence of HELLP syndrome. BP reportedly normal. PLAN: Will start on Low dose labetelol. Will hold if BP is well controlled. No detailed w/u at this time. Shall follow up as outpatient when discharged. Thank you. Will f/u with you. Poppy Stern MD
[2018-01-25] MEDS: LABETALOL HCL 100 MG TABLET (FP) PO SCH ×2 (13:57→21:46)
[2018-01-25] MEDS: ACETAMINOPHEN 325 MG TABLET (FP) PO PRN (21:45)
[2018-01-26] MEDS: LABETALOL HCL 100 MG TABLET (FP) PO SCH ×4 (06:14→21:51)
[2018-01-26] MEDS: ACETAMINOPHEN 325 MG TABLET (FP) PO PRN ×3 (08:33→23:24)
[2018-01-26] MEDS: oxyCODONE HCL 5 MG TABLET PO PRN (08:33)
[2018-01-26] MEDS: SIMETHICONE 80 MG TAB.CHEW (FP) PO PRN (08:33)
--- NOTE | 2018-01-26 09:08 | PN ---
Post Progress Note - Subjective Subjective: Pt seen/evaluated. Feeling well. Denies ORELLANA/Abdominal pain/epigastric pain or changes in vision. Tolerating diet, voiding, passing flatus. VB minimal. Type of Delivery: Primary C/S Vital Signs: Vital Signs Temperature 98 F 01/26/18 08:48 Pulse Rate 81 01/26/18 08:48 Respiratory Rate 20 01/26/18 08:48 Blood Pressure 144/95 01/26/18 08:48 O2 Sat by Pulse Oximetry (%) 99 01/22/18 12:00 Uterus: Yes: Fundus Firm, Fundus below umbilicus Incision: Yes: Sutures intact Abdomen/GI: Yes: Abdomen soft, Passing flatus, Tolerating PO. No: Tender Lochia, amount: Small Extremities: Yes: Calves non-tender. No: Edema Perineum: Yes: Intact Activity: Ambulating - Labs Labs: CBC WBC 6.2 K/mm3 (4.0-10.0) D 01/25/18 08:00 RBC 3.64 M/mm3 (3.60-5.2) 01/25/18 08:00 Hgb 11.0 GM/dL (10.7-15.3) 01/25/18 08:00 Hct 32.5 % (32.4-45.2) 01/25/18 08:00 MCV 89.4 fl (80-96) 01/25/18 08:00 MCH 30.3 pg (25.7-33.7) 01/25/18 08:00 MCHC 33.9 g/dl (32.0-36.0) 01/25/18 08:00 RDW 13.9 % (11.6-15.6) 01/25/18 08:00 Plt Count 193 K/MM3 (134-434) D 01/25/18 08:00 MPV 8.5 fl (7.5-11.1) 01/25/18 08:00 Absolute Neuts (auto) 4.3 # 01/25/18 08:00 Neutrophils % 69.1 % (42.8-82.8) 01/25/18 08:00 Lymphocytes % 20.6 % (8-40) D 01/25/18 08:00 Monocytes % 8.1 % (3.8-10.2) 01/25/18 08:00 Eosinophils % 1.8 % (0-4.5) D 01/25/18 08:00 Basophils % 0.4 % (0-2.0) 01/25/18 08:00 Nucleated RBC % 0 % (0-0) 01/25/18 08:00 Retic Count 2.11 % (0.5-1.5) H 01/20/18 22:50 Haptoglobin 87 mg/dL (34-200) 01/20/18 22:50 Problem List - Problems (1) delivery delivered Code(s): O82 - ENCOUNTER FOR DELIVERY WITHOUT INDICATION (2) Gestational hypertension Code(s): O13.9 - GESTATIONAL HTN W/O SIGNIFICANT PROTEINURIA, UNSP TRIMESTER Assessment/Plan 22 y/o POD# 4 s/p delivery for failed IOL, gestational HTN regular diet PO pain meds appreciate renal consult for elevated BP, pt now on labetalol, will await their recommendations for outpatient therapy and clearance for discharge otherwise pt stable post op
[2018-01-26] MEDS: PRENATAL VITAMINS W/ FOLIC ACID TABLET (FP) PO SCH (09:55)
[2018-01-26] MEDS: FERROUS SO4 325 MG TABLET (FP) PO SCH (09:55)
--- NOTE | 2018-01-26 09:57 | PN ---
Progress Note, Physician History of Present Illness: The patient seen in her room. Feeling better. BP still elevated. Pain still bothering her. No urinary complaints. No chest pain. No SOB. - Current Medication List Current Medications: Active Medications Acetaminophen (Tylenol -) 650 mg PO Q4H PRN PRN Reason: PAIN 3-4 Last Admin: 01/26/18 08:33 Dose: 650 mg Bisacodyl (Dulcolax Suppository -) 10 mg RC PRN PRN PRN Reason: CONSTIPATION Diphenhydramine HCl (Benadryl Injection -) 25 mg IVPUSH Q4H PRN PRN Reason: FOR ITCHING Ferrous Sulfate (Feosol -) 325 mg PO DAILY [facility] Last Admin: 01/25/18 09:02 Dose: 325 mg Dextrose/Lactated Ringer's (D5-Lr -) 1,000 mls @ 125 [facility] Last Admin: 01/22/18 00:30 Dose: 125 mls/hr Oxytocin/Sodium Chloride (Normal Saline+20 Units Oxytocin -) 20 unit in 1,000 mls @ 125 mls[facility] Last Admin: 01/22/18 12:15 Dose: 125 mls/hr Parenteral Electrolytes (Plasma-Lyte 148 -) 1,000 mls @ 125 mls[facility] Last Admin: 01/22/18 15:02 Dose: Not Given Labetalol HCl (Normodyne -) 200 mg PO TID [facility] Methylergonovine Maleate (Methergine Injection -) 0.2 mg IM Q4H PRN PRN Reason: Excessive Bleeding (L&D) Oxycodone HCl (Roxicodone -) 5 mg PO Q4H PRN PRN Reason: PAIN 5-7 Last Admin: 01/26/18 08:33 Dose: 5 mg Multivit/Folic Acid/Iron ( Vitamins (Sjr) -) 1 tab PO DAILY [facility] Last Admin: 01/25/18 09:02 Dose: 1 tab Simethicone (Mylicon -) 80 mg PO Q4H PRN PRN Reason: GAS Last Admin: 01/26/18 08:33 Dose: 80 mg - Objective Vital Signs: Vital Signs Temperature 98 F 01/26/18 08:48 Pulse Rate 81 01/26/18 08:48 Respiratory Rate 20 01/26/18 08:48 Blood Pressure 144/95 01/26/18 08:48 O2 Sat by Pulse Oximetry (%) 99 01/22/18 12:00 Constitutional: Yes: Well Nourished, No Distress Eyes: Yes: Conjunctiva Clear HENT: Yes: Normocephalic Neck: Yes: Trachea Midline Cardiovascular: Yes: Regular Rate and Rhythm, S1, S2 Respiratory: Yes: CTA Bilaterally Gastrointestinal: Yes: Normal Bowel Sounds Genitourinary: No: CVA Tenderness - Left, CVA Tenderness - Right Edema: LLE: Trace, RLE: Trace Neurological: Yes: Alert, Oriented Labs: CBC, BMP 01/25/18 08:00 01/20/18 18:16 INR, PTT INR 0.93 (0.82-1.09) 01/20/18 18:16 Problem List - Problems (1) hypertension Code(s): O16.5 - UNSPECIFIED MATERNAL HYPERTENSION, COMP THE PUERPERIUM (2) delivery delivered Code(s): O82 - ENCOUNTER FOR DELIVERY WITHOUT INDICATION (3) Gestational hypertension Code(s): O13.9 - GESTATIONAL HTN W/O SIGNIFICANT PROTEINURIA, UNSP TRIMESTER Assessment/Plan IMP: 22 y/o female has Post HTN. No evidence of HELLP syndrome. BP reportedly normal. PLAN: BP remains elevated. Will increase Labetalol to 200 mg TID. Will observe. If controlled, can be dc tomorrow. Will f/u in the office as outpatient. Thanks again. Poppy Stern MD
[2018-01-26] MEDS ORDERED: NIFEdipine E.R. 30 MG TABLET (FP) PO ONE (14:00)
[2018-01-27] MEDS: LABETALOL HCL 100 MG TABLET (FP) PO SCH (06:00)
[2018-01-27] MEDS: FERROUS SO4 325 MG TABLET (FP) PO SCH (09:07)
[2018-01-27] MEDS: PRENATAL VITAMINS W/ FOLIC ACID TABLET (FP) PO SCH (09:07)
--- NOTE | 2018-01-27 09:29 | PN ---
Progress Note (short form) - Note Progress Note: Renal follow up for hypertension Pt seen and examined at the bedside no acute complaints denies any ORELLANA, dizziness, CP, blurry vision no N/V received labetalol this am Vital Signs Temperature 98.6 F 01/27/18 08:27 Pulse Rate 82 01/27/18 08:27 Respiratory Rate 20 01/27/18 08:27 Blood Pressure 126/76 01/27/18 08:27 O2 Sat by Pulse Oximetry (%) 99 01/22/18 12:00 NAD no LE edema CBC, BMP 01/25/18 08:00 01/20/18 18:16 Laboratory Tests 01/20/18 22:50 Urine Protein Negative Current Medications Acetaminophen (Tylenol -) 650 mg PO Q4H PRN PRN Reason: PAIN 3-4 Last Admin: 01/26/18 23:24 Dose: 650 mg Bisacodyl (Dulcolax Suppository -) 10 mg RC PRN PRN PRN Reason: CONSTIPATION Diphenhydramine HCl (Benadryl Injection -) 25 mg IVPUSH Q4H PRN PRN Reason: FOR ITCHING Ferrous Sulfate (Feosol -) 325 mg PO DAILY [facility] Last Admin: 01/27/18 09:07 Dose: 325 mg Dextrose/Lactated Ringer's (D5-Lr -) 1,000 mls @ 125 mls/hr IV ASD[facility] Last Admin: 01/22/18 00:30 Dose: 125 mls/hr Oxytocin/Sodium Chloride (Normal Saline+20 Units Oxytocin -) 20 unit in 1,000 mls @ 125 mls/hr IV [facility] Last Admin: 01/22/18 12:15 Dose: 125 mls/hr Parenteral Electrolytes (Plasma-Lyte 148 -) 1,000 mls @ 125 mls/hr IV [facility] Last Admin: 01/22/18 15:02 Dose: Not Given Methylergonovine Maleate (Methergine Injection -) 0.2 mg IM Q4H PRN PRN Reason: Excessive Bleeding (L&D) Nifedipine (Procardia Xl -) 30 mg PO DAILY [facility] Oxycodone HCl (Roxicodone -) 5 mg PO Q4H PRN PRN Reason: PAIN 5-7 Last Admin: 01/26/18 08:33 Dose: 5 mg Multivit/Folic Acid/Iron ( Vitamins (Sjr) -) 1 tab PO DAILY [facility] Last Admin: 01/27/18 09:07 Dose: 1 tab Simethicone (Mylicon -) 80 mg PO Q4H PRN PRN Reason: GAS Last Admin: 01/26/18 08:33 Dose: 80 mg 22 year old woman with hypertension # hypertension likely PIH given no proteinuria Will give Procardia XL 30mg this AM BP does not appear to respond well to labetalol if BP is moderately controlled can plan for discharge on once daily Procardia XL discussed symptoms of hypotension with the patient asked to monitor BP at home twice daily to follow up in our office next week Low salt diet Thank you Spencer Valencia DO
[2018-01-27] MEDS: NIFEdipine E.R. 30 MG TABLET (FP) PO SCH ×2 (09:37→10:34)
[2018-01-27 12:18] VITALS: BP 143/87; PULSE 85; TEMP 98.2
== END 2018-01-27 14:30 | disposition home or self-care (01) | DRG 540 ==
LOC: JLDR 17:40 → J3W 01-22 12:33
PROVIDERS: ADMIT Obstetrics & Gynecology; ATTEND Obstetrics & Gynecology
PROC: 3E0P7VZ Introduction of Hormone into Female Reproductive, Via Natural or Artificial Opening (ICD-10-PCS; 2018-01-21)
PROC: 10D00Z1 Extraction of Products of Conception, Low, Open Approach (ICD-10-PCS; principal; 2018-01-22)
DX: O61.0 Failed medical induction of labor (principal); O13.3 Gestational [pregnancy-induced] hypertension without significant proteinuria, third trimester; O62.1 Secondary uterine inertia; Z3A.40 40 weeks gestation of pregnancy; Z37.0 Single live birth
CPT/HCPCS: 36415; 36600; 80048; 81003; 82803; 82977; 83010; 84450; 84460; 84550; 85025; 85032; 85044; 85610; 85730; 86593; 86850; 86900; 86901; 88307-TC; 90715

== ENCOUNTER 2018-04-09 23:52 | Emergency (ER) | payer OTHER ==
[2018-04-10 00:08] VITALS: BP 136/89; PULSE 68; TEMP 98.7; BMI 21.3
[2018-04-10] MEDS ORDERED: METOCLOPRAMIDE HCL 10 MG TABLET (FP) PO ONE ×2 (00:55→01:28)
[2018-04-10] MEDS ORDERED: ACETAMINOPHEN 325 MG TABLET (FP) PO ONE (00:55)
[2018-04-10] MEDS ORDERED: ACETAMINOPHEN 325 MG TABLET (FP) ONE (01:28)
--- NOTE | 2018-04-10 01:29 | PDOC ---
Attending Attestation - Resident Resident Name: Vikash Salmon - ED Attending Attestation I have performed the following: I have examined & evaluated the patient, The case was reviewed & discussed with the resident, I agree w/resident's findings & plan, Exceptions are as noted - HPI HPI: 04/10/18 01:23 23 YO FEMALE p/w frontal headache ,some chest tightness this evening. She has a blood pressure machine at home and took her BP and it was about 140/90 she was concerned and came to the ER - Physicial Exam PE: 04/10/18 01:29 wnwd 23 yo female in no distress p/w of concern for elevated BP at home head ncat neck no bruits,no JVD lungs cta b/l cvs [id number] abd soft,nontender ext no edema neuro axox3,no ataxia,motor strength 5/5, b/l, skin warm and dry psych appropriate 04/10/18 01:31 04/10/18 01:36 - Medical Decision Making 04/10/18 01:39 ekg is nsr with no signs of ischemia and there is no change from her previous ekg no focal neuro deficits no nausea,no vomiting no diplopia,no visual field cut
--- NOTE | 2018-04-10 01:30 | PDOC ---
History of Present Illness - General Chief Complaint: Blood Pressure Problem Stated Complaint: BLOOD PRESSURE PROBLEM Time Seen by Provider: 04/10/18 00:30 History Source: Patient Exam Limitations: No Limitations - History of Present Illness Initial Comments: 04/10/18 01:22 Patient is 23F with history of HTN here today complaining of a headache, bodyaches, dizziness and chest pain that started this morning that started at 9pm today. Patient's headache onset insidiously and is located on both sides of her head with associated light sensitivity. She states that she feels like the room is moving around her, but is able to walk without difficulty. The chest pain is located substernally, is intermittent, and has almost entirely resolved at this juncture. Denies leg swelling and recent travel, does take control. Past History - Past Medical History Allergies/Adverse Reactions: Allergies Allergy/AdvReac Type Severity Reaction Status Date / Time No Known Allergies Allergy Verified 01/19/18 10:30 Home Medications: Ambulatory Orders Pnv No.95/Ferrous Fum/Folic AC [ Vitamin Tablet] 1 each PO DAILY RX: Ferrous Sulfate 325 mg PO DAILY MDD 1 01/01/18 Oxycodone HCl/Acetaminophen [Percocet 5-325 mg Tablet -] 1 tab PO Q4H #20 tablet MDD 6 01/25/18 Nifedipine ER [Procardia Xl -] 30 mg PO DAILY #30 tab.er.24 01/27/18 Asthma: No Cancer: No Cardiac Disorders: No COPD: No Diabetes: No HTN: No Seizures: No Thyroid Disease: No Other medical history: pre-eclampisa - Suicide/Smoking/Psychosocial Hx Smoking History: Never smoked Have you smoked in the past 12 months: No Information on smoking cessation initiated: No Hx Alcohol Use: No Drug/Substance Use Hx: No Substance Use Type: None Hx Substance Use Treatment: No Review of Systems - Review of Systems Comments:: 04/10/18 01:30 GENERAL/CONSTITUTIONAL: No fever or chills. No weakness. HEAD, EYES, EARS, NOSE AND THROAT: No change in vision. No sore throat. CARDIOVASCULAR: +chest pain or shortness of breath RESPIRATORY: No cough, wheezing, or hemoptysis. GASTROINTESTINAL: + nausea. No vomiting diarrhea or constipation. GENITOURINARY: No dysuria, frequency, or change in urination. MUSCULOSKELETAL: No joint or muscle swelling or pain. No neck or back pain. SKIN: No rash NEUROLOGIC: No headache, vertigo, loss of consciousness, or change in strength/ sensation. ENDOCRINE: No increased thirst. No abnormal weight change HEMATOLOGIC/LYMPHATIC: No anemia, easy bleeding, or history of blood clots. ALLERGIC/IMMUNOLOGIC: No hives or skin allergy. *Physical Exam - Vital Signs Last Vital Signs Temp Pulse Resp BP Pulse Ox 98.7 F 68 18 136/89 100 04/10/18 00:06 04/10/18 00:06 04/10/18 00:06 04/10/18 00:06 04/10/18 00:06 - Physical Exam Comments: 04/10/18 01:31 GENERAL: Awake, alert, and fully oriented, in no acute distress HEAD: No signs of trauma, normocephalic, atraumatic EYES: PERRLA, EOMI, sclera anicteric, conjunctiva clear ENT: Auricles normal inspection, hearing grossly normal, nares patent, oropharynx clear without exudates. Moist mucosa NECK: Normal ROM, supple, no lymphadenopathy, JVD, or masses LUNGS: No distress, speaks full sentences, clear to auscultation bilaterally HEART: Regular rate and rhythm, normal S1 and S2, no murmurs, rubs or gallops, peripheral pulses normal and equal bilaterally. ABDOMEN: Soft, nontender, normoactive bowel sounds. No guarding, no rebound. No masses EXTREMITIES: Normal inspection, Normal range of motion, no edema. No clubbing or cyanosis. NEUROLOGICAL: Cranial nerves II through XII grossly intact. Normal speech, normal gait, no focal sensorimotor deficits SKIN: Warm, Dry, normal turgor, no rashes or lesions noted. Medical Decision Making - Medical Decision Making 04/10/18 01:31 Patient is 23F with history of HTN here today complaining of headache, chest pain and dizziness. EKG done, shows normal sinus rhythm with rate of 65. No st elevations/ depressions. No significant t wave abnormalities. Normal axis. Normal intervals. Patient informed of EKG results, states that she feels better and does not want any medications or test. Asking for work note. Given return precautions. Discharged. Patient expressed understanding. *DC/Admit/Observation/Transfer Diagnosis at time of Disposition: Elevated blood pressure reading - Discharge Dispostion Disposition: HOME Condition at time of disposition: Good Decision to Admit order: No - Referrals Referrals: Yonatan James [Primary Care Provider] - - Patient Instructions Printed Discharge Instructions: DI for High Blood Pressure, How to Monitor Your Blood Pressure at Home Additional Instructions: Please follow up with your primary care physician. Please return if you have any new, worsening or concerning symptoms. - Post Discharge Activity Forms/Work/School Notes: Back to Work
--- NOTE | 2018-04-10 14:33 | EKG ---
Test Reason : Blood Pressure : / mmHG Vent. Rate : 065 BPM Atrial Rate : 065 BPM P-R Int : 166 ms QRS Dur : 082 ms QT Int : 394 ms P-R-T Axes : 067 044 046 degrees QTc Int : 409 ms NORMAL SINUS RHYTHM WITH SINUS ARRHYTHMIA NORMAL ECG WHEN COMPARED WITH ECG OF 16-OCT-2015 08:27, NO SIGNIFICANT CHANGE WAS FOUND Confirmed by Malik Melendez ([id number]) on 04/10/2018 2:33:40 PM Referred By: Confirmed By:Malik Melendez
== END 2018-04-10 01:50 | disposition home or self-care (01) ==
LOC: JER 23:52
DX: R03.0 Elevated blood-pressure reading, without diagnosis of hypertension (principal)
CPT/HCPCS: 93005; 93010; 99282-25

== ENCOUNTER 2018-07-14 10:51 | Emergency (ER) | payer OTHER ==
[2018-07-14 10:59] VITALS: BP 122/83; PULSE 72; TEMP 98.2; BMI 22.1
[2018-07-14] MEDS ORDERED: IBUPROFEN 400 MG TABLET (FP) PO ONE ×2 (12:14→12:16)
--- NOTE | 2018-07-14 12:20 | PDOC ---
History of Present Illness - General Chief Complaint: Injury Stated Complaint: ANKLE SWELLING, FOOT PAIN Time Seen by Provider: 07/14/18 11:44 History Source: Patient - History of Present Illness Occurred: reports: other Lower Extremity Pain Location: right: foot, ankle Past History - Past Medical History Allergies/Adverse Reactions: Allergies Allergy/AdvReac Type Severity Reaction Status Date / Time No Known Allergies Allergy Verified 07/14/18 10:55 Home Medications: Ambulatory Orders NK [No Known Home Medication] 07/14/18 Asthma: No Cancer: No Cardiac Disorders: No COPD: No Diabetes: No HTN: No Seizures: No Thyroid Disease: No - Suicide/Smoking/Psychosocial Hx Smoking History: Never smoked Have you smoked in the past 12 months: No Hx Alcohol Use: No Drug/Substance Use Hx: No Substance Use Type: None Hx Substance Use Treatment: No Review of Systems - Review of Systems Constitutional: No: Fever Musculoskeletal: Yes: Joint Pain. No: Joint Swelling *Physical Exam - Vital Signs Last Vital Signs Temp Pulse Resp BP Pulse Ox 98.2 F 72 16 122/83 99 07/14/18 10:56 07/14/18 10:56 07/14/18 10:56 07/14/18 10:56 07/14/18 10:56 - Physical Exam General Appearance: Yes: Appropriately Dressed. No: Apparent Distress HEENT: positive: Normal Voice Neck: positive: Supple Respiratory/Chest: negative: Respiratory Distress Extremity: positive: Normal Inspection, Normal Range of Motion, Tender (minimal ttp over lat malleolus of R ankle). negative: Swelling Integumentary: positive: Dry, Warm Neurologic: positive: Fully Oriented, Alert, Normal Mood/Affect Moderate Sedation - Procedure Monitoring Vital Signs: Procedure Monitoring Vital Signs Temperature 98.2 F 07/14/18 10:56 Pulse Rate 72 07/14/18 10:56 Respiratory Rate 16 07/14/18 10:56 Blood Pressure 122/83 07/14/18 10:56 O2 Sat by Pulse Oximetry (%) 99 07/14/18 10:56 Medical Decision Making - Medical Decision Making 07/14/18 12:16 23-year-old female, denies any past medical history here with atraumatic R foot/ ankle pain. States pain started several days ago, mostly located to dorsal aspect of R foot and over lateral malleolus. Denies any trauma or obvious inciting factors. Taking Aleve and Tylenol with no relief. Patient reports having similar pain on and off for several months. Has been seen in the ER and by orthopedic with no clear etiology. No imaging in past. See exam Chronic R foot/ankle pain s/p multiple medical evaluations in ED and by ortho w/ no clear etiology per pt No imaging in past Exam unremarkable today -dc w/ pain control and ortho eval for possible MRI 07/14/18 12:22 *DC/Admit/Observation/Transfer Diagnosis at time of Disposition: Ankle pain Qualifiers: Chronicity: acute Laterality: right Qualified Code(s): M25.571 - Pain in right ankle and joints of right foot - Discharge Dispostion Disposition: HOME Condition at time of disposition: Good - Referrals Referrals: Yonatan James [Primary Care Provider] - Rufus Donald MD [Staff Physician] - - Patient Instructions Printed Discharge Instructions: DI for Ankle Pain Additional Instructions: The cause of your ankle pain is unclear at this time, but you will need to be further evaluated by an orthopedic doctor. Please call Dr. Donald of orthopedic for an appointment. In the meantime, take 800 of Motrin every 6 hours as needed for pain - Post Discharge Activity Forms/Work/School Notes: Back to Work
== END 2018-07-14 12:35 | disposition home or self-care (01) ==
LOC: JERFT 10:51
DX: M25.571 Pain in right ankle and joints of right foot (principal)
CPT/HCPCS: 99281-25

== ENCOUNTER 2019-03-02 19:46 | Emergency (ER) | payer OTHER | END 2019-03-02 20:48 | disposition home or self-care (01) | LOC: JERFT 19:46 ==

== ENCOUNTER 2020-09-01 08:46 | Emergency (ER) | payer OTHER ==
[2020-09-01 08:52] VITALS: BP 135/85; PULSE 77; TEMP 97.3; BMI 24.2
[2020-09-01] MEDS ORDERED: LACTATED RINGERS SOLUTION 1000 ML INFUS.BAG IV ONE (09:33)
[2020-09-01] MEDS ORDERED: ACETAMINOPHEN 500 MG TABLET (FP) PO ONE (09:44)
[2020-09-01] MEDS ORDERED: ACETAMINOPHEN 325 MG TABLET (FP) ONE (09:51)
== END 2020-09-01 11:39 | disposition home or self-care (01) ==
LOC: JER 08:46
DX: M54.12 Radiculopathy, cervical region (principal)
CPT/HCPCS: 70450-TC; 72125-TC; 82962; 93005; 93010; 99285-25

== ENCOUNTER 2021-04-11 18:43 | Emergency (ER) | payer OTHER ==
[2021-04-11 18:47] VITALS: BP 129/91; PULSE 61; TEMP 97; BMI 25.4
[2021-04-11 20:38] LABS: BASO % 0.4 % (0-2.0); EOS % 2.6 % (0-4.5); HEMATOCRIT 37.8 % (32.4-45.2); HEMOGLOBIN 12.9 GM/dL (10.7-15.3); LYMPH % 42.6 % (8-40); MCH 30.1 pg (25.7-33.7); MEAN CELL VOLUME 88.4 fl (80-96); MONO % 7.8 % (3.8-10.2); NEUT % 46.6 % (42.8-82.8); PLATELET COUNT 289 10^3/uL (134-434); RBC 4.28 M/mm3 (3.60-5.2); RDW 13.6 % (11.6-15.6); WHITE BLOOD COUNT 7.1 K/mm3 (4.0-10.0)
[2021-04-11 21:02] LABS: BLOOD UREA NITROGEN 12.1 mg/dL (7-18); CALCIUM 9.2 mg/dL (8.5-10.1)
[2021-04-11 21:06] LABS: CREATININE 0.9 mg/dL (0.55-1.3)
[2021-04-11 21:07] LABS: BILIRUBIN,TOTAL 0.6 mg/dL (0.2-1); TOT PROT 7.4 g/dl (6.4-8.2)
== END 2021-04-11 22:12 | disposition home or self-care (01) ==
LOC: JER 18:43
DX: R60.0 Localized edema (principal)
CPT/HCPCS: 36415; 80053; 85025; 93970-TC; 99284-25

== ENCOUNTER 2024-01-03 02:15 | Inpatient (IN) | payer OTHER ==
[2024-01-03] MEDS ORDERED: SODIUM CHLORIDE IVPB SCH (03:15)
[2024-01-03] MEDS ORDERED: PENICILLIN POTASSIUM IVPB SCH (03:15)
[2024-01-03 03:20] VITALS: BMI 31.4
[2024-01-03] MEDS: ELECTROLYTE-148 SOLN 500 ML IV ONE (03:30)
[2024-01-03 03:43] LABS: BASO % 0.3 % (0-2.0); EOS % 0.3 % (0-4.5); HEMOGLOBIN 12.3 GM/dL (10.7-15.3); LYMPH % 18.2 % (8-40); MCH 30.2 pg (25.7-33.7); MCHC 34.2 g/dl (32.0-36.0); MEAN CELL VOLUME 88.3 fl (80-96); MEAN PLT VOLUME 9.3 fl (7.5-11.1); MONO % 10.1 % (3.8-10.2); NEUT % 71.1 % (42.8-82.8); PLATELET COUNT 170 10^3/uL (134-434); RBC 4.07 M/mm3 (3.60-5.2); RDW 14.4 % (11.6-15.6); WHITE BLOOD COUNT 5.7 K/mm3 (4.0-10.0)
[2024-01-03 03:53] LABS: INR 0.96 (0.83-1.09); PROTHROMBIN TIME (PATIENT) 10.9 SEC (9.7-13.0)
[2024-01-03 03:55] LABS: ACTIVATED PTT 27.8 SECONDS (25.2-36.5)
[2024-01-03] MEDS ORDERED: PENICILLIN G POTASSIUM 5,000,000 UNIT/250 ML BAG IVPB ONE (03:59)
[2024-01-03] MEDS: ELECTROLYTE-148 SOLN 1,000 ML IV SCH (04:00)
[2024-01-03] MEDS: SODIUM CHLORIDE IVPB ONE (04:03)
[2024-01-03] MEDS: PENICILLIN POTASSIUM IVPB ONE (04:03)
[2024-01-03] MEDS: CITRIC ACID/SODIUM CITRATE 30 ML UNIT-DOSE CUP PO ONE (04:20)
[2024-01-03 04:40] LABS: POTASSIUM 3.4 mmol/L (3.5-5.1)
[2024-01-03 04:42] LABS: CALCIUM 8.6 mg/dL (8.5-10.1)
[2024-01-03 04:43] LABS: BLOOD UREA NITROGEN 4.4 mg/dL (7-18)
[2024-01-03 04:46] LABS: CREATININE 0.6 mg/dL (0.55-1.3)
[2024-01-03] MEDS ORDERED: morphine SULFATE/PF 1 MG/2 ML (2cc Syringe - QUVA) ONE (04:54)
[2024-01-03] MEDS ORDERED: FENTANYL CITRATE/PF 50 MCG/ML VIAL ONE (04:54)
[2024-01-03] MEDS ORDERED: PHENYLEPHRINE HCL 10 MG/1 ML SINGLE DOSE VIAL ONE (05:31)
[2024-01-03] MEDS ORDERED: ONDANSETRON 4 MG/2 ML VIAL ONE (05:31)
[2024-01-03] MEDS ORDERED: ceFAZolin SODIUM 1 GM VIAL ONE (05:31)
[2024-01-03] MEDS ORDERED: OXYTOCIN 10 UNITS/ML VIAL ONE (05:31)
[2024-01-03] MEDS ORDERED: ACETAMINOPHEN 325 MG TABLET (FP) PO PRN (06:30)
[2024-01-03] MEDS ORDERED: METHYLERGONOVINE MALEATE 0.2 MG/1 ML AMP IM PRN (06:30)
[2024-01-03] MEDS: OXYTOCIN 20 UNITS in 0.9% NS 20 UNIT/1,000 ML INFUS.BAG IV SCH (06:40)
[2024-01-03] MEDS ORDERED: OXYTOCIN 20 UNITS in 0.9% NS 20 UNIT/1,000 ML INFUS.BAG IV ONE (06:41)
[2024-01-03] MEDS ORDERED: PENICILLIN G POTASSIUM 2,500,000 UNIT in SODIUM CHLORIDE 100 ML IVPB SCH (07:15)
[2024-01-03] MEDS: PRENATAL VITAMINS W/ FOLIC ACID TABLET (FP) PO SCH (12:36)
[2024-01-03 13:42] LABS: POC NITRAZINE POS
[2024-01-03] MEDS ORDERED: oxyCODONE HCL 5 MG TABLET PO PRN ×2 (18:30)
[2024-01-03] MEDS: ACETAMINOPHEN 1000 MG/100 ML BAG IVPB PRN (20:32)
[2024-01-04] MEDS: ENOXAPARIN NA (PORCINE) 40 MG/0.4 ML DISP.SYRIN SQ SCH (06:16)
[2024-01-04] MEDS ORDERED: BISACODYL 10 MG SUPP.RECT RC PRN (06:30)
[2024-01-04 08:11] LABS: BASO % 0.3 % (0-2.0); EOS % 0.7 % (0-4.5); HEMOGLOBIN 11.4 GM/dL (10.7-15.3); MCH 30.4 pg (25.7-33.7); MCHC 34.4 g/dl (32.0-36.0); MEAN CELL VOLUME 88.4 fl (80-96); MEAN PLT VOLUME 8.9 fl (7.5-11.1); MONO % 8.9 % (3.8-10.2); NEUT % 73.1 % (42.8-82.8); PLATELET COUNT 169 10^3/uL (134-434); RBC 3.73 M/mm3 (3.60-5.2); RDW 14.3 % (11.6-15.6); WHITE BLOOD COUNT 8.4 K/mm3 (4.0-10.0)
[2024-01-04] MEDS: IBUPROFEN 600 MG TABLET (FP) PO PRN (09:13)
[2024-01-04] MEDS: SIMETHICONE 80 MG TAB.CHEW (FP) PO PRN (09:14)
[2024-01-06 08:00] LABS: BASO % 0.3 % (0-2.0); EOS % 1.5 % (0-4.5); HEMATOCRIT 31.8 % (32.4-45.2); HEMOGLOBIN 10.7 GM/dL (10.7-15.3); LYMPH % 14.5 % (8-40); MCH 29.8 pg (25.7-33.7); MCHC 33.5 g/dl (32.0-36.0); MEAN PLT VOLUME 8.9 fl (7.5-11.1); MONO % 6.7 % (3.8-10.2); PLATELET COUNT 205 10^3/uL (134-434); RBC 3.57 M/mm3 (3.60-5.2); WHITE BLOOD COUNT 8.2 K/mm3 (4.0-10.0)
[2024-01-06 10:26] VITALS: BP 110/71; PULSE 89; RESP 17; TEMP 98.4
== END 2024-01-06 13:25 | disposition home or self-care (01) | DRG 540 ==
LOC: JLDR 02:15 → J3W 08:45
PROVIDERS: ADMIT Obstetrics & Gynecology Obstetrics; ATTEND Obstetrics & Gynecology Obstetrics
PROC: 10D00Z1 Extraction of Products of Conception, Low, Open Approach (ICD-10-PCS; principal; 2024-01-03)
DX: O34.219 Maternal care for unspecified type scar from previous cesarean delivery (principal); O42.02 Full-term premature rupture of membranes, onset of labor within 24 hours of rupture; O69.81X0 Labor and delivery complicated by cord around neck, without compression, not applicable or unspecified; O99.824 Streptococcus B carrier state complicating childbirth; Z3A.38 38 weeks gestation of pregnancy; Z37.0 Single live birth
CPT/HCPCS: 0241U-QW; 36415; 59025; 80048; 80053; 83986-QW; 85025; 85610; 85730; 86780; 86850; 86900; 86901; 88307-TC; 94010; G0463-25; J0131